=== PATIENT | female | born 1975 | race Caucasian/White ===

== ENCOUNTER 2019-03-21 08:49 | Outpatient (CLI) | payer BC, SELFPAY ==
[2019-03-21 09:31] LABS: Albumin Level 4.7 g/dL (3.5-5.2); Anion Gap 15.9 (5-19); Blood Urea Nitrogen 37 mg/dL (6-20); Calcium 11.2 mg/Dl (8.6-10.0); Carbon Dioxide 25 mmol/L (22-29); Chloride 101 mmol/L (98-107); Glucose 100 mg/dL (74-109); Phosphorus 3.3 mg/dL (2.5-4.5); Potassium 3.9 mmol/L (3.5-5.1); Sodium 138 mmol/L (136-145)
== END 2019-03-21 08:50 | disposition home or self-care (01) ==
LOC: LAB 08:56
PROVIDERS: Family Provider Family Medicine; PCP Family Medicine; Visit Provider Internal Medicine Nephrology
DX: N18.9 Chronic kidney disease, unspecified (principal)
CPT/HCPCS: 80069

== ENCOUNTER 2019-03-25 08:57 | Outpatient (CLI) | payer BC, SELFPAY | END 2019-03-25 08:58 | disposition home or self-care (01) | LOC: ONCMED 08:58 | PROVIDERS: Family Provider Family Medicine; PCP Family Medicine; Visit Provider Internal Medicine Hematology & Oncology | DX: Z45.2 Encounter for adjustment and management of vascular access device (principal) | CPT/HCPCS: 96523 ==

== ENCOUNTER 2019-04-10 10:00 | Outpatient (CLI) | payer BC, SELFPAY ==
--- NOTE | 2019-04-10 10:12 | CT_ITS ---
WS: [id number] CT ABDOMEN AND PELVIS NONCONTRAST HISTORY: ABDOMINAL PAIN, CHRONIC KIDNEY DISEASE STAGE 4 TECHNIQUE: Imaging performed through the abdomen and pelvis. Coronal and sagittal reformats are submi tted. All CT scans at [facility] use at least one of these dose optimization techniques: automated exposure control; mA and/or kV adjustment per patient size (includes targeted exams where d ose is matched to clinical indication); or iterative reconstruction. DLP: 1038.22 mGycm COMPARISON: 12/18/2017 Lower thorax: Minimal linear subsegmental atelectasis at the lung bases. No pleural effusion or pneum othorax. Heart size is normal. No hiatal hernia. Small shoddy retrocrural lymph nodes. Liver: New hypoechoic dense lesion along the falciform ligament measures 2.2 x 2.0 cm. New since the prior study where a typical location for focal steatosis. Cannot evaluate further without IV contrast . Gallbladder: Unremarkable. Pancreas: Normal. Spleen: Normal. Adrenal glands: Normal. Right kidney: Progressive atrophy of the RIGHT kidney. RIGHT kidney measures 7.7 cm in length as comp ared to 9.0 cm on 12/18/2017. Diffuse cortical thinning with perinephric stranding. Left kidney: LEFT kidney is normal size at 10.5 cm. There are numerous calcifications throughout the kidney. The largest is in the lower pole which is nonobstructing and measures 1.6 cm. Mild distention of the renal pelvis and calyces and proximal ureter. Much improved since 08/22/2017 but similar to . Scattered calcification within the abdominal aorta with no aneurysm. Persistent shotty retroperitoneal lymphadenopathy. Adenopathy at the level of the aortic bifurcation appears slightly improved. Confluent adenopathy extending medial to the iliopsoas muscles into the pe lvis and along the iliac chains and obturator regions appears to progressed. Confluent soft tissue me dial to the LEFT psoas measures 2.7 cm in diameter as compared to 1.3 cm on the prior study. Lymph no clarisa are difficult to visualize discretely as they are very ill-defined in appearance and confluent. L argest lymph node measures 2.5 cm in the LEFT pelvis. There was only a very small lymph node at this location on the prior study. Bilaterally there is increasing soft tissue and adenopathy. Bilateral ur eteral stents have been removed since 12/18/2017. GI tract: Moderate diffuse fecal retention. Normal appendix. No obstruction. Abdominal wall: Intact. Pelvis: Well-distended urinary bladder. Uterus is midline and an endometrial is dilated and thickened measuring up to 2.1 cm. There is a small cystic area associated with the RIGHT ovary measuring 1.5 c m. Osseous structures: Partial sclerotic changes in the L4 vertebral body with no progression. CT/CT abdomen pelvis wo con [id number] IMPRESSION: 1. Progressive atrophy of the RIGHT kidney since 12/18/2017. 2. Bilateral ureteral stents have been removed since 12/18/2017. 3. LEFT renal calcifications and mild dilatation of the renal pelvis and proxi mal ureter, similar to the prior study. 4. Suspicious for recurrence and progression of patient's lymphoma since the p rior study. New and increasing size and number of lymph nodes in the retroperit oneum, iliac and pelvic lymph node groups. 5. Fluid-filled endometrium. 6. Hypodense area along the falciform ligament is a typical area for hepatic s teatosis. Recommend follow-up ultrasound for further evaluation to exclude neop lasm.
== END 2019-04-10 10:01 | disposition home or self-care (01) ==
LOC: RADWPI 10:03
PROVIDERS: Family Provider Family Medicine; PCP Family Medicine; Visit Provider Internal Medicine Nephrology
DX: N18.4 Chronic kidney disease, stage 4 (severe) (principal); R10.9 Unspecified abdominal pain; N26.1 Atrophy of kidney (terminal); Z96.0 Presence of urogenital implants; N28.89 Other specified disorders of kidney and ureter
CPT/HCPCS: 74176

== ENCOUNTER 2019-04-16 11:21 | Outpatient (CLI) | payer BC, SELFPAY ==
[2019-04-16 11:43] LABS: Basophils % 0.4 %; Eosinophils # 0.2 10^3/uL (0.0-0.8); Hematocrit 40.9 % (37.0-47.0); Hemoglobin 13.2 g/dL (11.5-15.3); Lymphocytes # 0.9 10^3/uL (0.8-4.8); Lymphocytes % 8.3 %; Mean Corpuscular HGB Conc 32.3 g/dL (30.0-36.0); Mean Corpuscular Hemoglobin 32.6 pg (28.0-34.0); Mean Platelet Volume 9.7 fL (7.4-10.4); Monocytes % 9.1 %; Neutrophils # 8.9 10^3/uL (1.8-7.7); Neutrophils % 79.8 %; Nucleated Red Blood Cells % 0 %; Platelet Count 319 10^3/cmm (130-400); Red Blood Count 4.05 10^6/uL (4.1-5.3); Red Cell Distribution Width 12.6 % (12.1-15.1); White Blood Count 11.1 10^3/uL (4.0-10.0)
[2019-04-16 11:52] LABS: Albumin Level 4.2 g/dL (3.5-5.2); Anion Gap 17.2 (5-19); Blood Urea Nitrogen 33 mg/dL (6-20); Calcium 11.1 mg/dL (8.5-10.5); Carbon Dioxide 24 mmol/L (22-29); Chloride 102 mmol/L (98-107); Glucose 96 mg/dL (65-115); Phosphorus 3.5 mg/dL (2.5-4.5); Potassium 4.2 mmol/L (3.5-5.1); Sodium 139 mmol/L (136-145)
== END 2019-04-16 11:22 | disposition home or self-care (01) ==
LOC: LAB 11:24
PROVIDERS: Family Provider Family Medicine; PCP Family Medicine; Visit Provider Internal Medicine Nephrology
DX: N18.4 Chronic kidney disease, stage 4 (severe) (principal)
CPT/HCPCS: 36415; 80069; 85025

== ENCOUNTER 2019-04-23 16:10 | Outpatient (CLI) | payer BC, SELFPAY ==
--- NOTE | 2019-04-23 16:16 | XRR_ITS ---
PROCEDURE INFORMATION: Exam: XR Right Hip with Pelvis when Performed Exam date and time: 04/23/2019 4:23 PM Age: 44 years old Clinical indication: Hip pain; Right hip; Additional info: Right hip pain/hx of lymphoma TECHNIQUE: Imaging protocol: XR Right hip with pelvis when performed. Views: 1 view. COMPARISON: CR Pelvis AP 1 or 2 views* [id number] 01/13/2019 2:37 PM FINDINGS: Bones/joints: Right hip appears well conjugated. No fracture or dislocation evident. Soft tissues: Unremarkable. XR/XR hip RT 2-3V wo/w pel* [id number] IMPRESSION: No acute findings.
== END 2019-04-23 16:11 | disposition home or self-care (01) ==
LOC: RAD 16:12
PROVIDERS: Family Provider Family Medicine; PCP Family Medicine; Visit Provider Psychiatry & Neurology Neurology
DX: M25.551 Pain in right hip (principal); Z85.72 Personal history of non-Hodgkin lymphomas
CPT/HCPCS: 73502

== ENCOUNTER 2019-04-28 09:05 | Outpatient (CLI) | payer BC, SELFPAY | END 2019-04-28 09:06 | disposition home or self-care (01) | LOC: ONCMED 09:05 | PROVIDERS: Family Provider Family Medicine; PCP Family Medicine; Visit Provider Internal Medicine Hematology & Oncology | DX: Z76.89 Persons encountering health services in other specified circumstances (principal) ==

== ENCOUNTER 2019-04-28 09:20 | Emergency (ER) | payer BC, SELFPAY ==
[2019-04-28 09:22] VITALS: BP 150/83; PULSE 92; RESP 18; O2SAT 99; BMI 22.3
--- NOTE | 2019-04-28 09:23 | ED_ITS ---
HPI - Back Pain/Injury General: Chief Complaint: Back Pain/Injury Stated Complaint: BACK PAIN Time Seen by Provider: 04/28/19 09:23 Source: patient Mode of arrival: ambulatory Limitations: no limitations History of Present Illness: HPI Narrative: Patient is a very nice 44-year-old female who presents to ED today at the request of her oncologist Dr. Owusu for complaints of continued lower back pain over the past 9 weeks. Patient states she has been seen by her oncologist Dr. Owusu and her food safety director Dr. Miles both of which are not sure what could be causing her symptoms. Patient states pain seems to be radiating around into her abdomen. She reports about 3 wks ago she had vaginal bleeding which was abnormal as she experience menopause with the chemo/radiation and has not had vaginal bleeding in years. She was scheduled for outpt pelvic US in a few days but after seeing Dr. Owusu today, he wanted her to come to ED for more prompt evaluation. She does not have any changes in urinary or bowel habits. No nausea or vomiting. No fevers or chills. Patient reports a history of lymphoma currently being treated with maintenance therapy. She reports a right atrophic kidney. She reports at one point was on peritoneal dialysis but her food safety director recently ordered her peritoneal tube to be removed as her GFR was stable. Tube was removed by Dr. Abreu last month. elicited complaint: back pain Onset (ago): week(s) Timing: constant Severity: moderate Location: lumbar spine, right lower back and left lower back Associated symptoms: Reports abdominal pain; Deny chills, dysuria, fatigue, fever(s), nausea, syncope, urinary urgency or vomiting Review of Systems Const: Denies: fever, chills, body aches, fatigue or malaise Card: Denies: chest pain, palpitations, irregular heart rhythm, edema, swelling of feet/ankles, lightheadedness, syncope or pre-syncope Resp: Denies: shortness of breath, productive cough or chest congestion GI: Reports: abdominal pain; Denies: nausea, vomiting, diarrhea or constipation : Denies: flank pain, difficulty urinating, painful urination, urinary frequency, urinary urgency or urinary hesitancy Musc: Reports: back pain; Denies: neck pain, extremity pain, extremity swelling, joint pain, joint swelling or limited range of motion Skin/Breast: Denies: rash Neuro: Denies: headache, numbness in extremities, weakness in extremities or changes in sensation PFSH ED PFSH: Medical History (Updated 04/28/19 @ 13:39 by DESIREE Grayson) Chronic renal failure, stage 4 (severe) Kidney stones Lymphoma Peritoneal dialysis catheter in place Removed. Port-A-Cath in place Surgical History (Updated 03/25/19 @ 15:52 by Vinh Abreu MD) History of S/P cystoscopy with ureteral stent placement bilateral - [place] Family History (Updated 03/19/19 @ 12:17 by Mona Tao, RN) Denies family history of Anesthesia complication Bleeding disorder Social History (Updated 03/19/19 @ 12:18 by Mona Tao RN) Smoking and tobacco status: current every day smoker Second hand smoke exposure: No Alcohol intake: never Adopted: No Caregiver/support person: Yes Lives independently: Yes Household members: spouse Housing: House Current gender identity: Female Physical Exam Const: COMMON NORMALS: no apparent distress, average body habitus, oriented x3, no limitations, healthy appearing, alert and well nourished Resp: COMMON NORMALS: normal respiratory effort and clear to auscultation bilaterally AUSCULTATION: clear to auscultation bilaterally Cardio: COMMON NORMALS: regular rate and regular rhythm RATE: regular rate RHYTHM: regular rhythm GI: COMMON NORMALS: normal to inspection, nondistended, normoactive bowel sounds, soft to palpation, no hepatosplenomegaly and no masses PALPATION: Yes soft and Yes no hepatosplenomegaly OTHER: mid tenderness throughout lower abdomen-R>L : COMMON NORMALS: Yes no CVA tenderness BLADDER/KIDNEY EXAM: Yes no CVA tenderness Back/Pelvis: COMMON NORMALS: no CVA tenderness OTHER: pain across lower back; negative straight leg raise bilaterally; ROM of legs does not seem to reproduce back pain Extremity: COMMON NORMALS: normal to inspection Neuro: COMMON NORMALS: oriented x3, no focal motor deficits and no sensory deficits noted SENSORIUM/ORIENTATION: Yes alert Skin: COMMON NORMALS: no rashes or lesions noted GENERAL SKIN EXAM: no rashes or lesions noted Course Vital Signs: Vital signs: Vital Signs Pulse Rate 74 04/28/19 13:55 Respiratory Rate 14 04/28/19 13:55 Blood Pressure 125/87 04/28/19 13:55 Pulse Oximetry 97 04/28/19 13:55 MDM - Back Pain/Injury MDM Narrative: Medical decision making narrative: On patient's pelvic ultrasound she does have a large endometrial mass with a differential diagnosis including neoplasm. She will need to follow-up with women's health for this. She currently has an appointment with them scheduled for May 11 (this was going to be her follow-up appointment should she had had her pelvic ultrasound outpatient). We will contact case management to see if they can get her a sooner appointment. 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 She has a little left-sided hydronephrosis likely due to compression of her distal ureter from the soft tissue. I contacted [facility] radiologist Dr. Tatum who compared directly to her last CT scan on 04/10 and stated the findings were stable/unchanged. Due to a nonfunctioning atrophic right kidney, previous dialysis, a GFR of 17, and probable UTI on her UA I contacted Dr. Rose to see if a ureter stent would be indicated. He reviewed patient's imaging and does not feel the findings today are related to her discomfort. He did not feel a ureter stent would be indicated at this time. Did recommend going ahead and treating her for the UTI. I contacted Dr. Owusu to let him know findings and that we would be setting her up with [facility] for evaluation of her endometrial mass. Recommend she follow-up with her food safety director Dr. Miles as well. Her GFR and BUN/Cr are at her baseline (actually better) today. Lab Data: Labs: Lab Results 04/28/19 04/28/19 04/28/19 Range/Units 09:29 09:50 09:50 WBC 13.7 H (4.0-10.0) 10^3/ uL RBC 3.94 L (4.1-5.3) 10^6/u L Hgb 12.9 (11.5-15.3) g/dL Hct 39.1 (37.0-47.0) % MCV 99.2 H (81-99) fL MCH 32.7 (28.0-34.0) pg MCHC 33.0 (30.0-36.0) g/dL RDW 13.0 (12.1-15.1) % Plt Count 290 (130-400) 10^3/c mm MPV 9.8 (7.4-10.4) fL Neut % (Auto) 82.9 % Lymph % (Auto) 5.9 % Linn % (Auto) 8.7 % Eos % (Auto) 1.6 % Baso % (Auto) 0.1 % Neut # (Auto) 11.3 H (1.8-7.7) 10^3/u L Lymph # (Auto) 0.8 (0.8-4.8) 10^3/u L Linn # (Auto) 1.2 H (0.2-0.9) 10^3/u L Eos # (Auto) 0.2 (0.0-0.8) 10^3/u L Baso # (Auto) 0.0 (0.0-0.1) 10^3/u L Nucleated RBC % (a uto) 0 % Nucleated RBCs # 0.0 /100WBC Sodium 138 (136-145) mmol/L Potassium 4.2 (3.5-5.1) mmol/L Chloride 101 (98-107) mmol/L Carbon Dioxide 23 (22-29) mmol/L Anion Gap 18.2 (5-19) BUN 45 H (6-20) mg/dL Creatinine 2.9 H (0.5-0.9) mg/dL GFR Calculation 17.5 L (90-130) mL/min Glucose 100 (65-115) mg/dL Calcium 10.7 H (8.5-10.5) mg/dL Total Bilirubin 0.4 (0.15-1.2) mg/dL AST 19 (0-32) U/L ALT 15 (0-33) U/L Alkaline Phosphata se 91 (35-105) IU/L Total Protein 7.4 (6.6-8.7) g/dL Albumin 4.1 (3.5-5.2) g/dL Globulin 3.3 (1.3-4.6) g/dL Urine Color Straw (Yellow) Urine Appearance Sl hazy (CLEAR) Urine pH 7.0 (5-7) Ur Specific Gravit y 1.010 (1.005-1.030) Urine Protein Neg (Negative) Urine Glucose (UA) Norm (Normal) Urine Ketones Negative (Negative) Urine Occult Blood 2+ H (Negative) Urine Nitrate Negative (Negative) Urine Bilirubin Neg (NEGATIVE) Urine Urobilinogen Norm (Negative) mg/dL Ur Leukocyte Lauren ase 2+ H (Negative) Urine RBC 0-4 H (0-2) /hpf Urine WBC 15-25 H (0-5) /hpf Ur Squamous Epith Cells 0-4 H (0-5) Urine Bacteria 1+ H (NONE) Imaging Data^: CT lumbar : Radiologist's impression: [address] [address] [address] Scan Report Signed Patient: Shruthi Hess Unit #: [id number] : 1975 Age/Sex: 44 / F ADM Date: 04/28/19 Loc: ER Room/Bed: Attending Dr: Ordering Provider/Ordering MD: Tosha Lamas Date of Service: 04/28/19 Procedure(s): CT lumbar spine wo con* [id number] Accession Number(s): [id number] Report Number: [id number] PROCEDURE INFORMATION: Exam: CT Lumbar Spine Without Contrast Exam date and time: 04/28/2019 11:23 AM Age: 44 years old Clinical indication: Low back pain; Prior surgery; Surgery type: Peritoneal port; Patient HX: RT sided back pain with history of lymphoma; Additional info: Back pain; HX of lymphoma TECHNIQUE: Imaging protocol: Computed tomography images of the lumbar spine without contrast. Total DLP: 1428.83 mGy-cm Radiation optimization: All CT scans at this facility use at least one of these dose optimization techniques: automated exposure control; mA and/or kV adjustment per patient size (includes targeted exams where dose is matched to clinical indication); or iterative reconstruction. COMPARISON: CT abdomen pelvis wo con [id number] 04/10/2019 11:00:[address] Abdomen/Pelvis Renal [id number] 12/18/2017 8:20:29 PM FINDINGS: Vertebrae: A sclerotic lesion within the right lateral aspect of the L4 vertebral body is unchanged. No acute fracture is present. Alignment is anatomic. Discs/Spinal canal/Neural foramina: Mild degenerative changes of the lumbar spine are present. There is no severe spinal canal stenosis or severe neural foraminal narrowing. Vasculature: Atherosclerotic calcifications are noted within the aorta and its branches. Lymph nodes: Extensive retroperitoneal, mesenteric, and aortocaval lymphadenopathy is present, compatible with the history of lymphoma. 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 Soft tissues: See Lymph Nodes Finding. Kidneys and ureters: The right kidney is atrophic. Mild left-sided hydronephrosis is present, likely due to compression of the distal ureter by the above-mentioned retroperitoneal soft tissue. Multiple nonobstructing stones and milk of calcium are noted within the left kidney. CT/CT lumbar spine wo con* [id number] IMPRESSION: 1. Extensive retroperitoneal, mesenteric, and aortocaval lymphadenopathy is present, compatible with the history of lymphoma. 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 2. Stable sclerotic lesion in the L4 vertebra Radiation Dose CTDIVOL = (mGy): DLP = 1428.83 (mGy-cm) Dictated By: Gurwinder Tatum MD Signed By: Gurwinder Tatum MD Signed Date/Time: 04/28/19 1248 DD/ 1246 US pelvis: Radiologist's impression: [place] [address] Ultrasound Report Signed Patient: Shruthi Hess Unit #: [id number] : 1975 Age/Sex: 44 / F ADM Date: 04/28/19 Loc: ER Room/Bed: Attending Dr: Ordering Provider/Ordering MD: Tosha Lamas Date of Service: 04/28/19 Procedure(s): US pelvic with transvaginal Accession Number(s): [id number] Report Number: [id number] WS: [id number] PELVIC ULTRASOUND REASON FOR VISIT: pelvic pain/bleeding TECHNIQUE: Grayscale and Doppler transabdominal and transvaginal pelvic ultrasound. FINDINGS: A benign appearing cyst of the right ovary is seen measured 2.27 x 1.58 x 1.80 cm. Uterus measures 9.0 cm x 4.0 cm x 3.2 cm, right ovary measures 2.8 cm x 2.5 cm x 2.7 cm, and left ovary measures not visualized. Along the endometrial surface is a mass configuration in a complex uterus this measures 3.08 x 1.76 x 3.216 cm. The cervix appeared to be clear the lesion. Lesion appears to extend to the fundus of the uterus. The differential diagnosis includes neoplasm or marked endometrial hyperplasia. US/US pelvic with transvaginal IMPRESSION: A large endometrial mass is seen involving the upper one half of the uterus extends to the fundus. A benign cyst of the right ovary The left ovary is not visualized. Dictated By: Addy Gutierres DO Signed By: Addy Gutierres DO Signed Date/Time: 04/28/19 1105 DD/ 1053 Discharge Plan Discharge Patient Disposition: Home, Self-Care Clinical Impression: Retroperitoneal fibrosis, Endometrial mass, Chronic renal failure, stage 4 (severe) Condition: Stable Prescriptions: New hydrocodone-acetaminophen 5-325 mg tablet 1 tab PO Q6H PRN (Reason: pain) Qty: 14 RF: 0 ciprofloxacin HCl 250 mg tablet 250 mg PO DAILY Qty: 7 RF: 0 No Action RenaPlex 800 mcg- 12.5 mg tablet 1 tab PO DAILY RF: 0 hydrocodone-acetaminophen 5-325 mg tablet 1 tab PO Q6H PRN (Reason: Pain) RF: 0 diclofenac sodium 1 % gel See Rx Instructions .ROUTE .COMPLEX RF: 0 Discharge Orders: Discharge Order (Routine); Ordered 04/28/19 Ordered By: Tosha Lamas Referrals: Mack Yarbrough MD [Primary Care Provider] - Activity Restrictions/Additional Instructions: As discussed case management should contact you with hopefully a sooner appointment for your women's health follow-up. If not please keep your appointment on May 11. Follow-up with Dr. Owusu as scheduled. Please contact Dr. Miles so he is aware of findings today. Discharge Date/Time: 04/28/19 13:55 Coding Level of Care Code ED [employer] for Andrea Lord
--- NOTE | 2019-04-28 09:44 | US_ITS ---
WS: [id number] PELVIC ULTRASOUND REASON FOR VISIT: pelvic pain/bleeding TECHNIQUE: Grayscale and Doppler transabdominal and transvaginal pelvic ultrasound. FINDINGS: A benign appearing cyst of the right ovary is seen measured 2.27 x 1.58 x 1.80 cm. Uterus measures 9.0 cm x 4.0 cm x 3.2 cm, right ovary measures 2.8 cm x 2.5 cm x 2.7 cm, and left ova ry measures not visualized. Along the endometrial surface is a mass configuration in a complex uterus this measures 3.08 x 1.76 x 3.216 cm. The cervix appeared to be clear the lesion. Lesion appears to extend to the fundus of the uterus. The differential diagnosis includes neoplasm or marked endometrial hyperplasia. US/US pelvic with transvaginal IMPRESSION: A large endometrial mass is seen involving the upper one half of the uterus ext ends to the fundus. A benign cyst of the right ovary The left ovary is not visualized.
[2019-04-28 09:57] LABS: Basophils % 0.1 %; Eosinophils # 0.2 10^3/uL (0.0-0.8); Eosinophils % 1.6 %; Hematocrit 39.1 % (37.0-47.0); Hemoglobin 12.9 g/dL (11.5-15.3); Lymphocytes # 0.8 10^3/uL (0.8-4.8); Lymphocytes % 5.9 %; Mean Corpuscular Hemoglobin 32.7 pg (28.0-34.0); Mean Corpuscular Volume 99.2 fL (81-99); Mean Platelet Volume 9.8 fL (7.4-10.4); Monocytes # 1.2 10^3/uL (0.2-0.9); Monocytes % 8.7 %; Neutrophils # 11.3 10^3/uL (1.8-7.7); Neutrophils % 82.9 %; Nucleated Red Blood Cells % 0 %; Platelet Count 290 10^3/cmm (130-400); Red Blood Count 3.94 10^6/uL (4.1-5.3); White Blood Count 13.7 10^3/uL (4.0-10.0)
[2019-04-28 10:11] LABS: Alanine Aminotransferase 15 U/L (0-33); Albumin Level 4.1 g/dL (3.5-5.2); Alkaline Phosphatase 91 IU/L (35-105); Anion Gap 18.2 (5-19); Aspartate Amino Transferase 19 U/L (0-32); Blood Urea Nitrogen 45 mg/dL (6-20); Calcium 10.7 mg/dL (8.5-10.5); Carbon Dioxide 23 mmol/L (22-29); Chloride 101 mmol/L (98-107); Globulin 3.3 g/dL (1.3-4.6); Glomerular Filtration Rate 17.5 mL/min (90-130); Glucose 100 mg/dL (65-115); Potassium 4.2 mmol/L (3.5-5.1); Sodium 138 mmol/L (136-145); Total Bilirubin 0.4 mg/dL (0.15-1.2); Total Protein 7.4 g/dL (6.6-8.7)
[2019-04-28 10:16] LABS: Urine Appearance SL Hazy (CLEAR); Urine Color Straw (Yellow)
[2019-04-28 10:17] LABS: Add Urine Microscopic? YES; Bilirubin Urine Neg (NEGATIVE); Blood Urine 2+ (Negative); Glucose Urine UA Norm (Normal); Ketones Urine Negative (Negative); Leukocyte Esterase Urine 2+ (Negative); Nitrate Urine Negative (Negative); Protein Urine Neg (Negative); Urobilinogen Urine Norm (Negative)
[2019-04-28 10:18] LABS: Add Urine Culture? Yes; Bacteria Urine 1+; RBC Urine 0-4 /hpf (0-2); Squamous Epithelial Cell Urine 0-4 (0-5); WBC Urine 15-25 /hpf (0-5)
--- NOTE | 2019-04-28 10:59 | CTR_ITS ---
PROCEDURE INFORMATION: Exam: CT Lumbar Spine Without Contrast Exam date and time: 04/28/2019 11:23 AM Age: 44 years old Clinical indication: Low back pain; Prior surgery; Surgery type: Peritoneal port; Patient HX: RT sided back pain with history of lymphoma; Additional info: Back pain; HX of lymphoma TECHNIQUE: Imaging protocol: Computed tomography images of the lumbar spine without contrast. Total DLP: 1428.83 mGy-cm Radiation optimization: All CT scans at this facility use at least one of these dose optimization techniques: automated exposure control; mA and/or kV adjustment per patient size (includes targeted exams where dose is matched to clinical indication); or iterative reconstruction. COMPARISON: CT abdomen pelvis wo con [id number] 04/10/2019 11:00:[address] Abdomen/Pelvis Renal [id number] 12/18/2017 8:20:29 PM FINDINGS: Vertebrae: A sclerotic lesion within the right lateral aspect of the L4 vertebral body is unchanged. No acute fracture is present. Alignment is anatomic. Discs/Spinal canal/Neural foramina: Mild degenerative changes of the lumbar spine are present. There is no severe spinal canal stenosis or severe neural foraminal narrowing. Vasculature: Atherosclerotic calcifications are noted within the aorta and its branches. Lymph nodes: Extensive retroperitoneal, mesenteric, and aortocaval lymphadenopathy is present, compatible with the history of lymphoma. 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 Soft tissues: See Lymph Nodes Finding. Kidneys and ureters: The right kidney is atrophic. Mild left-sided hydronephrosis is present, likely due to compression of the distal ureter by the above-mentioned retroperitoneal soft tissue. Multiple nonobstructing stones and milk of calcium are noted within the left kidney. CT/CT lumbar spine wo con* [id number] IMPRESSION: 1. Extensive retroperitoneal, mesenteric, and aortocaval lymphadenopathy is present, compatible with the history of lymphoma. 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 2. Stable sclerotic lesion in the L4 vertebra Radiation Dose CTDIVOL = (mGy): DLP = 1428.83 (mGy-cm)
[2019-04-28 11:23] VITALS: RESP 12
[2019-04-28] MEDS: morphine 4 mg/mL SDV 1 mL IM (11:23)
[2019-04-28 11:25] VITALS: BP 126/74; PULSE 87; RESP 16; O2SAT 98
[2019-04-28 12:46] VITALS: BP 114/76; PULSE 83; RESP 17; O2SAT 96
--- NOTE | 2019-04-28 12:48 | PC.NURSE ---
Patient resting without complaint. Given PO fluids and crackers. Denies any needs at this time.
[2019-04-28 13:55] VITALS: BP 125/87; PULSE 74; RESP 14; O2SAT 97
--- NOTE | 2019-04-29 15:17 | DCPLANNER ---
platform material handler manager had message to schedule a follow up appointment for patient with [facility]. platform material handler manager called [facility], gave clinic patients information. platform material handler manager was told that patients information would be printed and reviewed. Clinic will call caseworker and patient with appointment information.
--- NOTE | 2019-04-30 13:13 | DCPLANNER ---
Awilda from [facility] called, a follow up appointment has been scheduled for Sunday, May 05, 2019 at 3:[address] Freeman. Clinic called patient with appointment information.
--- NOTE | 2019-05-13 14:49 | DCPLANNER ---
Patient did attend appointment scheduled for 05.05.19 with [facility].
== END 2019-04-28 13:55 | disposition home or self-care (01) ==
PROVIDERS: Emergency Provider Physician Assistant; Family Provider Family Medicine; PCP Family Medicine
DX: N13.5 Crossing vessel and stricture of ureter without hydronephrosis (principal); N85.9 Noninflammatory disorder of uterus, unspecified; N18.4 Chronic kidney disease, stage 4 (severe); C85.90 Non-Hodgkin lymphoma, unspecified, unspecified site; F17.200 Nicotine dependence, unspecified, uncomplicated
CPT/HCPCS: 36415; 72131; 76830; 76856; 80053; 81001; 85025; 87086; 96372; 99281; 99283; A9270; J2270

== ENCOUNTER → 2019-05-05 16:15 | Outpatient (BNVA) | payer BC, SELFPAY | PROVIDERS: Family Provider Family Medicine; PCP Family Medicine; Visit Provider Obstetrics & Gynecology | DX: N93.9 Abnormal uterine and vaginal bleeding, unspecified (principal) | CPT/HCPCS: 83001; 84146; 84443; 84703; 85025 ==

== ENCOUNTER 2019-05-28 06:13 | Outpatient (CLI) | payer BC, SELFPAY ==
[2019-05-28 09:26] LABS: Basophils % 0.2 %; Eosinophils # 0.1 10^3/uL (0.0-0.8); Eosinophils % 0.9 %; Hematocrit 36.4 % (37.0-47.0); Lymphocytes # 0.9 10^3/uL (0.8-4.8); Lymphocytes % 5.8 %; Mean Corpuscular Hemoglobin 33.9 pg (28.0-34.0); Mean Corpuscular Volume 102.8 fL (81-99); Mean Platelet Volume 9.7 fL (7.4-10.4); Monocytes # 1.3 10^3/uL (0.2-0.9); Monocytes % 8.1 %; Neutrophils # 13.1 10^3/uL (1.8-7.7); Neutrophils % 84.2 %; Nucleated Red Blood Cells % 0 %; Platelet Count 329 10^3/cmm (130-400); Red Blood Count 3.54 10^6/uL (4.1-5.3); Red Cell Distribution Width 13.3 % (12.1-15.1); White Blood Count 15.6 10^3/uL (4.0-10.0)
[2019-05-28 09:38] LABS: Alanine Aminotransferase 6 U/L (0-33); Albumin Level 3.9 g/dL (3.5-5.2); Alkaline Phosphatase 90 IU/L (35-105); Anion Gap 13.5 (5-19); Aspartate Amino Transferase 16 U/L (0-32); Blood Urea Nitrogen 30 mg/dL (6-20); Calcium 11.6 mg/dL (8.5-10.5); Carbon Dioxide 26 mmol/L (22-29); Chloride 102 mmol/L (98-107); Globulin 3.4 g/dL (1.3-4.6); Glomerular Filtration Rate 18.2 mL/min (90-130); Glucose 105 mg/dL (65-115); Osmolality Calculated 283 mOsm/kg (285-295); Potassium 3.5 mmol/L (3.5-5.1); Sodium 138 mmol/L (136-145); Total Bilirubin 0.2 mg/dL (0.15-1.2); Total Protein 7.3 g/dL (6.6-8.7)
--- NOTE | 2019-05-28 14:31 | ONC FU_ITS ---
Dr. Owusu follow up note Patient: Shruthi Hess Unit #: [id number]: 1975 Dicatated By: Nicole Owusu M.D.Date of Visit:May 28, 2019 Onc Med Follow-up/Prog Note History of Present Illness: Mrs. Shruthi Hess, is a 43-year-old female who initially, in 2011, was diagnosed with non-Hodgkin lymphoma diffuse large B cell with extensive disease above and below diaphragm at that time bone marrow evaluation was negative and PET scan showed the dominant mesenteric mass with retroperitoneal lymphadenopathy and disease was also present above the diaphragm. She was treated with 6 cycles of chemotherapy with R CHOP and lost treatment was given in July 2011 and follow-up CT PET scan showed complete remission. Subsequently patient lost follow-up until in August 2017 she was admitted to hospital with generalized weakness and fatigue, abdominal discomfort and pain and renal insufficiency, CT scan of abdomen showed progressive retroperitoneal adenopathy causing post renal obstruction and bilateral ureteral stents were placed in and biopsy of retroperitoneal lymph nodes was obtained and this time it showed follicular lymphoma, grade 3A (60%), and grade 1-2 (40%), no diffuse large B cell lymphoma identified patient was started on R CHOP again but Doxil was used instead of doxorubicin with second cycle every and vincristine dose was reduced by 50% in the last 3 cycles due to peripheral neuropathy. CT PET scan done after 5 cycles of chemotherapy showed confluent lower retroperitoneal/pelvic adenopathy, right more prominent than left, similar to that observed on the previous CT scan exam. Consistent with lymphoma involvement but with low level of metabolic standards meeting Deauville 2 criteria consistent with tumor response history. Her hematuria resolved, but intended to have pelvic pain for which she take 5/325 hydrocodone/acetaminophen. And other issue she had persistent hypercalcemia and impression was probably due to renal insufficiency for which she is on daily peritoneal dialysis at home. And patient is noncompliant with that . After 6 cycles of modified R CHOP ( Doxil instead of Adriamycin and 50% dose reduction and vincristine with the last 3 cycles )chemotherapy she was offered maintenance therapy with Rituxan every 3 months ???24 months. But patient decided to switch her care close to her home Had follow-up CT PET scan done on 06/19/2018 at [facility], as per report it shows no evidence of disease. She was evaluated by Dr. Almanza and she recommended maintenance therapy with Rituxan every 3 months for 2 years.Started maintenance therapy with Rituxan every 3 months on 05/28/2018 CT scan of abdomen pelvis done on 04/10/2019 showed suspicious for recurrence and progression of patient's lymphoma. Anterior size and number of lymph nodes in the retroperitoneum, iliac and pelvic lymph nodes group. Fluid-filled endometrium. Follow-up CT PET scan done on 05/02/2019 showed extensive lower retroperitoneal and pelvic lymphadenopathy with marked metabolic activity. Uterus demonstrated marked increase of metabolic activity concerning for neoplastic A cystic masses present cephalad to the urinary bladder and center to the uterus of unknown etiology without focally increase metabolic activity. Consider possible peritoneal inclusion cyst Patient went to see Dr. Mosqueda at [facility], where on 05/22/[address]-guided core biopsy of right pelvic lymph node and final pathology report confirmed metastatic squamous cell carcinoma, moderately to poorly differentiated. Too few cells for flow cytometry Came for follow-up, complaining of lower pelvic pain now being controlled with narcotics. Denies any vaginal bleed denies any hematuria denies any melena or hematochezia denies any jaundice. And concern but recurrence of disease and here to discuss about pelvic lymph node biopsy report Medications: HYDROcodone-Acetaminophen 1 Tablet (of 5-325 mg) Oral q 4 hours, RenaPlex-D 1 Tablet Oral daily Allergies: No Known Allergies. Review of Systems: Constitutional - Appetite is fair. Weight is stable. No fever, chills, or night sweats. Energy level is poor. Occasional hot flashes, ENMT - No sinus congestion/drainage. No mouth sores. No sore throat or difficulty swallowing, Hematologic/Lymphatic - No abnormal bruising or bleeding, Respiratory - No shortness of breath. No cough. No pleuritic pain or hemoptysis, Cardiovascular - No angina pain. No palpitations, Gastrointestinal - No nausea or vomiting. No heartburn or acid reflux. No diarrhea or constipation. No blood in the stool or black stools. Positive for severe lower abdominal pain, Genitourinary (F) - No dysuria or hematuria. No urinary frequency. No urgency or incontinence, Musculoskeletal - Occasional joint pain, Neurologic - No headache or dizziness. No numbness/paresthesias or other focal neurologic symptoms, Psychiatric - No depression or insomnia. Vital Signs: Performed on May 28, 2019 10:21 Height - 64.00 in Weight - 127.2 lbs (LOW) BSA - 1.61 sq.m BMI - 21.83 Temperature - 97.4 F (LOW) Pulse - 79 /min Respiration - 18 /min BP - 116/80 mm(hg) O2 Sat - 100 % Pain - 4 Performance Status: 1 - No physically strenuous activity, but ambulatory and able to carry out light or sedentary work (e.g. office work, light house work). (ECOG) Physical Examination: ENMT - No oral exudates, ulcers, masses, thrush or mucositis. Oropharynx clear. Tongue normal, Respiratory - Lungs are clear to auscultation without rhonchi or wheezing, Cardiovascular - Regular rate and rhythm of heart, Abdomen - Non-tender, non-distended, no masses, . Good bowel sounds. No guarding or rebound tenderness. No pulsatile masses, Extremities - no edema. Lab/Imaging: Test performed on Feb 26, 2019 09:00 Sodium 140 mmol/L Potassium 4.0 mmol/L Chloride 105 mmol/L CO2 23 mmol/L Anion Gap 16.0 BUN 46 mg/dL Creatinine 3.1 mg/dL Cr Clearance (Est) 22.4700 mL/min eGFR 16.2 mL/min Glucose 105 mg/dl Calcium 10.2 mg/dL Protein, Total 7.1 g/dL Albumin 4.5 g/dL Globulin 2.6 gm/dL Bilirubin, Total 0.2 mg/dL ALT (SGPT) 15 U/L AST (SGOT) 20 U/L Alkaline Phosphatase 117 U/L WBC 9.3 10 3/uL RBC 3.83 10 6/uL HGB 13.0 g/dL HCT 39.2 % MCV 102.3 fl MCH 33.9 pg MCHC 33.2 g/dl RDW 12.8 % Platelet Count 197 10 3/cmm MPV 9.8 fl Neutrophils 7.0 10 3/uL Lymphocytes 0.8 10 3/uL Monocytes 1.2 10 3/uL Eosinophils 0.2 10 3/uL Basophils 0.0 10 3/uL Neutrophil % 75.6 % Lymphocyte % 8.1 % Monocyte % 13.3 % Eosinophil % 2.4 % Basophils % 0.2 % Impression: Follicular lymphoma involving both side of diaphragm clinical stage III per left retroperitoneal lymph node core biopsy done on 08/27/2017. Which showed follicular lymphoma, grade 3A (60%,) grade1-2 (40% )and now diffuse large B-cell lymphoma identified CT scan of chest abdomen pelvis done on 08/23/2017 showed extensive confluent retroperitoneal lymphadenopathy. Moderate bilateral hydronephrosis with ureteral stents and no evidence of hepatosplenomegaly. CT scan of chest done on 08/25/2017 showed no evidence of thoracic lymphadenopathy Status post 6 cycles of chemotherapy with modified R CHOP (Doxil instead of doxorubicin after first cycle and 50% vincristine dose reduction with last 3 cycles) 10/04/17 to 01/22/18 follow-up CT PET scan done on 01/10/2018 showed confluent lower retroperitoneal/pelvic lymphadenopathy, right more than left, similar to that observed on previous CT scan but now with low level of metabolic standards meeting Deauville 2 criteria consistent with tumor responseRenal failure on daily peritoneal dialysis at home, ? Noncompliant Hypercalcemia ? Etiology, renal versus metabolic/endocrine e.g. PTH related. Or malignant. Next Right Pelvic pain/right knee pain scan due to retroperitoneal lymphadenopathy or lumbosacral Anemia probably multifactorial Peripheral neuropathy Ectopic dermatitis on feet being treated with clobetasol cream Patient was referred to lymphoma leukemia clinic at [facility] in [place] for clinical trials or second opinion patient was seen by Dr. Almanza , and her recommendations were, due to patient's underlying renal failure and being on peritoneal dialysis she was not a candidate for clinical trials. But maintenance therapy with Rituxan every 3 months for 2 years was recommended and she is planning to repeat her CT PET scan in 2 months because of persistent lymphadenopathy on posttreatment CT scan. Also considering referred to [facility]poster at [facility] for evaluation regarding etiology, management and chances of recovery or if she is a candidate for renal transplant. discussed with Mrs Hess her visit to lymphoma clinic at [facility] and the recommendations. At this point, her treatment plan will be maintenance therapy with Rituxan 375 mg/m??? every 3 months ???2 years, as recommended by Dr. Almanza .Started on maintenance therapy with Rituxan every 3 months on 05/28/2018 Plan: Discussed with patient regarding herlabs which showed white blood count 15.6 and globin 12 crit 36.4 platelets 329,000 CMP within normal limit except creatinine 2.8 and calcium 11.6 and right pelvic lymph node biopsy report which showed metastatic squamous cell carcinoma moderately to poorly differentiated, which was a incidental finding as patient has history of lymphoma. And CT PET scan shows increase uptake in the uterus. Case was discussed with Dr. Almanza, and she suggested [employer] surgical oncologist evaluation, now being referred to [facility] for evaluation. If hysterectomy is under consideration then we will also request whole lymph node biopsy to confirm squamous cell carcinoma unless uterine specimen confirm squamous pathology especially cervical part. Next Patient will return to clinic 1 week after [employer] surgical evaluation done in [place] with CBC CMP and we will also give her prescription for pain medication. Signed By: Nicole Owusu M.D. <<Signature on File>>
== END 2019-05-28 06:14 | disposition home or self-care (01) ==
LOC: ONCMED 06:14
PROVIDERS: Family Provider Family Medicine; PCP Family Medicine; Visit Provider Internal Medicine Hematology & Oncology
DX: C82.33 Follicular lymphoma grade IIIa, intra-abdominal lymph nodes (principal); N13.30 Unspecified hydronephrosis; E83.52 Hypercalcemia; R10.2 Pelvic and perineal pain; D64.9 Anemia, unspecified; G62.9 Polyneuropathy, unspecified; L30.9 Dermatitis, unspecified; Z79.891 Long term (current) use of opiate analgesic; Z92.21 Personal history of antineoplastic chemotherapy; Z92.25 Personal history of immunosuppression therapy; Z96.0 Presence of urogenital implants
CPT/HCPCS: 36591; 80053; 85025; 99214

== ENCOUNTER 2019-06-05 08:59 | Outpatient (RCR) | payer BC, SELFPAY ==
--- NOTE | 2019-06-05 | CT_ITS ---
Radiation Therapy Planning CT images; total exam DLP: 498.48 mGy-cm MTDD
--- NOTE | 2019-06-05 13:58 | N.ONRAD NP_ITS ---
Radiation Oncology New Patient Visit Patient: Shruthi Hess MR#: [id number] : 1975> Age: 44> Sex: Female> Dictated by: Dr. Rishi Martinez Date of Service: 06/05/2019 Referring Physician(s) : Dr. Génesis Campbell Diagnosis: 1) C82.33 - follicular lymphoma grade iiia, intra-abdominal lymph nodes, Diagnosed 03/01/2018 (active). 2) Cervix ,Squamous Cell Carcinoma Radiotherapy to date: Summary > No prior radiation therapy. Chief Complaint / History of Present Illness: Mrs. Hess is a 44-year-old lady who has a complex history of non-Hodgkin's lymphoma. She was recently diagnosed with cervix cancer and is referred for the initiation of external beam radiation. She was found to have diffuse large B cell non-Hodgkin's lymphoma in 2011. She had disease above and below the diaphragm. She was treated with R-CHOP and went into CR. She had minimal follow-up and presented in August 2017 with weakness, fatigue, abdominal pain, and renal insufficiency. She had retroperitoneal lymphadenopathy with renal obstruction and required bilateral ureteral stents. However, she states she lost function of the right kidney. She was on peritoneal dialysis for a time but now is not on dialysis. She states she has 17% of her normal renal function. She says if she goes down to 10% she will have to go back on dialysis. A biopsy at the time of recurrence actually showed follicular lymphoma with no diffuse large B-cell lymphoma being found. She was again treated with R-CHOP, though with reduced drug doses. According to records, she had stable findings on CT and in early 2018 went on Rituxan maintenance. She is still on that, taking Rituxan every 3 months. Follow-up imaging performed in March 2019 revealed suspicious findings related to the uterus. She developed vaginal bleeding and discharge. She was found to have a node in the right lower pelvis/inguinal area. A biopsy was performed that showed metastatic squamous cell carcinoma, moderate to poorly differentiated. She saw Dr. Hicks in [place] yesterday. The exam was limited but he feels certain she has carcinoma of the cervix. He asked that the patient be seen today and simulated so that treatment can be started as soon as possible. She will have an exam under anesthesia in [place] tomorrow. I think he will be doing a biopsy at that time. Radiation oncologist is scheduled to be with him in the OR so an assessment can be made about future brachii therapy. Current Medications: Acetaminophen, dexamethasone, diphenhydrAMINE HCl, hydrocodone-Acetaminophen, hYDROcodone-Acetaminophen, renaPlex-D, riTUXimab. Allergies: No Known Allergies Medical History: - Anemia, - peripheral neuropathy, - renal failure. No history of collagen vascular disease. No previous radiation therapy. Surgical History: Caesarean section, cystoscopy, port placement and ureteral stent. Family History: Father is alive. Mother is having experienced brain aneurysm, and renal cancer. Maternal Grandmother is having experienced lymphoma. paternal aunt had uterine cancer and a paternal uncle had lung cancer. Social History: Last screened on 05/28/2019 - Current every day smoker 1.0 pack/day for 20 years (20 pack years). Last screened on 05/28/2019 - Never drank. Patient indicated use of the following products: cigarettes. Current Complaints / Review of Systems: . Vital Signs: Physical Exam: Alert, oriented, no acute distress. Neck is supple. No cervical, supraclavicular, axillary lymphadenopathy. Lungs clear to percussion. On auscultation no rales rhonchi or wheezes. Heart rhythm regular. No murmur or gallop. Abdomen no distention. No organomegaly or mass or tenderness. She has palpable lymphadenopathy in the right inguinal area. Palpable nodes are between 1 and 2 cm in size. She has fullness through the inguinal area. In the left inguinal area she also has soft tissue fullness. She has some small nodes that are palpable but I could not detect any enlarged lymph nodes. Pelvic exam: the external genitalia were normal in appearance. Speculum exam revealed normal-appearing vaginal mucosa. The patient was very tender and I did not get a good look at the cervix. There was a small amount of discharge in the vagina. On bimanual exam, the patient's tenderness also limited the ability to assess. There is firmness in the area of the cervix though no specific mass was palpated. Rectal examination was unrevealing. I could not detect any parametrial disease, but the patient's tenderness limited that assessment. Musculoskeletal: she had no bone tenderness. Normal gait. No lymphedema. Performance Status: KPS 60/100 Pathology: 1) Primary, c82.33 - follicular lymphoma grade iiia, intra-abdominal lymph nodes, Diagnosed 03/01/2018 (active). 2) Squamos Cell Carcinoma Lab: Test performed on 05/28/2019 9:00 AM WBC - 15.6 10 3/ul (high), RBC - 3.54 10 6/ul (low), HCT - 36.4 % (low), MCV - 102.8 fl (high), Neutrophils - 13.1 10 3/ul (high), Monocytes - 1.3 10 3/ul (high), BUN - 30 mg/dl (high), Creatinine - 2.8 mg/dl (high), Cr Clearance (Est) - 24.8800 ml/min (low), eGFR - 18.2 ml/min (low) and Calcium - 11.6 mg/dl (high). Imaging: See HPI. PET scan performed at [facility] on 04/29/2019 revealed bulky mesenteric lymphadenopathy as well as bulky retroperitoneal lymphadenopathy extending down into the pelvis along the common iliac, internal iliac, and external iliac chains. The uterus also had abnormal uptake. Impression: Mrs. Hess has what appears to be carcinoma of the cervix metastatic to an inguinal node. She has very bulky lymphadenopathy in the pelvis, with most of it probably related to the non-Hodgkin's lymphoma. Unfortunately it is not possible to distinguish lymph nodes containing lymphoma from those containing squamous cell carcinoma. Therefore her treatment field will need to include bilateral pelvic nodes and bilateral inguinal nodes. This will result in a treatment volume that makes it more difficult to shield normal tissue such as the bladder and bowel. The plan is to deliver 4500 cGy to the areas of known disease and regional nodes in the pelvis. This dose should be safe for bladder and small bowel. Hopefully she will be a candidate for brachii therapy after completing 5 weeks of external beam radiation. I discussed with Mrs. Hess that because of her kidney function she may not be able to receive concomitant chemotherapy. I told her the standard is to deliver weekly chemotherapy with external beam radiation. Although brachii therapy will be helpful with pelvic lymphadenopathy, it will have minimal or no impact on inguinal lymphadenopathy. Therefore the inguinal areas may need an external beam boost at some point. I reviewed the recommended course of radiation. I reviewed side effects such as fatigue, loss of appetite, weight loss, diarrhea, and dysuria. Also discussed risks, particularly the need for surgery on the bowel or bladder. I told her the treatment could result in a permanent ostomy as well. She has already gone through menopause and so that is not a consideration at this time. Mrs. Hess wishes to proceed as recommended. Plan: Smulation today; EUA tomorrow. Signed by: 06/05/2019 1:56:26 PM <<Signature on File>> Time spent with patient: CPT Code: CPT Code:
== END 2019-06-10 23:59 | disposition home or self-care (01) ==
LOC: ONCMED 08:59
PROVIDERS: Family Provider Family Medicine; PCP Family Medicine; Visit Provider Specialist
DX: C76.0 Malignant neoplasm of head, face and neck (principal); C82.33 Follicular lymphoma grade IIIa, intra-abdominal lymph nodes
CPT/HCPCS: 77334; 99205

== ENCOUNTER 2019-07-10 06:50 | Outpatient (RCR) | payer SELFPAY ==
[2019-06-13 12:15] LABS: Basophils % 0.2 %; Eosinophils # 0.2 10^3/uL (0.0-0.8); Eosinophils % 0.8 %; Hematocrit 37.2 % (37.0-47.0); Hemoglobin 11.8 g/dL (11.5-15.3); Lymphocytes # 0.6 10^3/uL (0.8-4.8); Lymphocytes % 3.3 %; Mean Corpuscular HGB Conc 31.7 g/dL (30.0-36.0); Mean Corpuscular Hemoglobin 33.7 pg (28.0-34.0); Mean Corpuscular Volume 106.3 fL (81-99); Mean Platelet Volume 10.1 fL (7.4-10.4); Monocytes # 1.7 10^3/uL (0.2-0.9); Nucleated Red Blood Cells % 0 %; Platelet Count 388 10^3/cmm (130-400); Red Cell Distribution Width 14.6 % (12.1-15.1); White Blood Count 18.9 10^3/uL (4.0-10.0)
[2019-06-13 12:35] LABS: Alanine Aminotransferase 8 U/L (0-33); Alkaline Phosphatase 105 IU/L (35-105); Anion Gap 19.8 (5-19); Aspartate Amino Transferase 17 U/L (0-32); Blood Urea Nitrogen 31 mg/dL (6-20); Calcium 12.1 mg/dL (8.5-10.5); Carbon Dioxide 23 mmol/L (22-29); Chloride 97 mmol/L (98-107); Globulin 3.1 g/dL (1.3-4.6); Glomerular Filtration Rate 17.5 mL/min (90-130); Glucose 90 mg/dL (65-115); Osmolality Calculated 279 mOsm/kg (285-295); Potassium 3.8 mmol/L (3.5-5.1); Sodium 136 mmol/L (136-145); Total Bilirubin 0.3 mg/dL (0.15-1.2); Total Protein 7.1 g/dL (6.6-8.7)
[2019-06-23 11:16] LABS: Bilirubin Urine Neg (NEGATIVE); Blood Urine 2+ (Negative); Glucose Urine UA Norm (Normal); Ketones Urine Negative (Negative); Leukocyte Esterase Urine 2+ (Negative); Nitrate Urine Positive (Negative); Protein Urine Trace (Negative); Urine Appearance Cloudy (CLEAR); Urine Color Straw (Yellow); Urobilinogen Urine Norm (Negative); pH Urine 7 (5-7)
[2019-06-23 11:18] LABS: WBC Urine TOO NUMEROUS TO CNT /hpf (0-5)
[2019-06-23 11:19] LABS: Add Urine Culture? Yes; Bacteria Urine 3+; Squamous Epithelial Cell Urine 0-4 (0-5)
--- NOTE | 2019-06-24 10:55 | ONCRAD TMN_ITS ---
Radiation Oncology Weekly Treatment Management Patient: Shruthi Hess MR#: [id number] : 1975> Age: 44> Sex: Female Dictated by: Dr. Harris Powers Date of Service: 06/24/2019 Referring Physician(s) : Dr. Génesis Campbell Primary Diagnosis: C82.33 - Follicular lymphoma grade iiia, intra-abdominal lymph nodes, Diagnosed 03/01/2018 (Active) Radiotherapy to date: Course: Pelvis 2019, Treatment Site: [id number], Ref. ID: [id number], Energy: 15X/6X, Dose/Fx (cGy): 180, #Fx: , Dose Correction (cGy): 0, Total Dose (cGy): 900, Start Date: 06/18/2019, Elapsed Days: 6 Current Complaints/Interval History: Constitutional Complains of mild fatigue. Complains of low grade fever which occurs intermittently. Complains of night sweats which occur every night. Denies lack of appetite and change in weight. Integumentary No redness to the vaginal area Gastrointestinal Complains of abdominal pain located in left lower quadrant. Complains of nausea. Denies constipation, diarrhea, heartburn / dyspepsia, melena / GI bleeding and vomiting. Genitourinary (F) Complains of dysuria. Complains of nocturia gets up about 1 to 2 times per night. Complains of urgency occasionally. Complains of recent urine color change described as cloudy. Complains of vaginal spotting. Denies frequency. Current Medications: Acetaminophen, ciprofloxacin HCl, dexamethasone, diphenhydrAMINE HCl, hydrocodone-Acetaminophen, hYDROcodone-Acetaminophen, renaPlex-D, riTUXimab. Allergies: No Known Allergies Vital Signs: Performed on 06/24/2019 10:17 AM BMI - 20.838 kg/m2, Height - 64.00 in, Weight - 121.4 lbs, Temperature - 99.1 f, Pulse - 90, Respiration - 16, O2 Sat - 96 %, Pain - 3 and BP - 99/ 67 mm(hg). Physical Exam: Appears stable, no skin erythema or desquamation. Performance Status: 1 - No physically strenuous activity, but ambulatory and able to carry out light or sedentary work (e.g. office work, light house work). (ECOG) Lab: None pending in Radiation Oncology. Test performed on 05/28/2019 9:00 AM WBC - 15.6 10 3/ul (high), RBC - 3.54 10 6/ul (low), HCT - 36.4 % (low), MCV - 102.8 fl (high), Neutrophils - 13.1 10 3/ul (high), Monocytes - 1.3 10 3/ul (high), BUN - 30 mg/dl (high), Creatinine - 2.8 mg/dl (high), Cr Clearance (Est) - 24.8800 ml/min (low), eGFR - 18.2 ml/min (low) and Calcium - 11.6 mg/dl (high). Imaging: No new diagnostic imaging was performed since the last weekly treatment visit. All radiation therapy related imaging (including but not limited to kV, MV, and CBCT generated images) was reviewed. Appropriate changes, if any, were made to assure accurate target localization. Impression/Plan: Tolerating treatment well with expected side effects. Continue treatment as planned. UA with increased wbc???s-Rx???ed Cipro 500 mg twice daily for 7 days CPT: 95604 Signed by: Dr. Harris Powers>06/24/2019 10:54:20 AM <<Signature on File>>
--- NOTE | 2019-07-02 15:35 | ONCRAD TMN_ITS ---
Radiation Oncology Weekly Treatment Management Patient: Shruthi Hess MR#: [id number] : 1975> Age: 44> Sex: Female Dictated by: Beni Fajardo Date of Service: 07/02/2019 Referring Physician(s) : Dr. Génesis Campbell Primary Diagnosis: C82.33 - Follicular lymphoma grade iiia, intra-abdominal lymph nodes, Diagnosed 03/01/2018 (Active) Radiotherapy to date: Course: Pelvis 2019, Treatment Site: [id number], Ref. ID: [id number], Energy: 15X/6X, Dose/Fx (cGy): 180, #Fx: , Dose Correction (cGy): 0, Total Dose (cGy): 1,980, Start Date: 06/18/2019, Elapsed Days: 14 Current Complaints/Interval History: Chronic low grade temp persists which predates treatment. Mild ongoing fatigue. Vaginal DC improved with less discharge and now clear. Odor also improved. Rests a lot. Lives with who is on immunotherapy for lung cancer dx approx. 2 years ago. Bowels variable with no real diarrhea. Constitutional Complains of mild fatigue. Complains of low grade fever which occurs throughout the day. Complains of night sweats which occur every night. Complains of rigors / chills occurring occasionally. Denies lack of appetite. Integumentary Has no redness to the vaginal area. Gastrointestinal Complains of abdominal pain located in the lower abdomen. Complains of intermittent constipation. Complains of nausea which happens occasionally. Denies diarrhea, heartburn / dyspepsia and vomiting. Genitourinary (F) Complains of nocturia gets up about 2 to 3 times per night. Complains of occasional vaginal discharge / bleeding described as clear, watery. Denies dysuria, frequency, hematuria, urgency and vaginal spotting. Musculoskeletal Complains of bone pain in both hips. Current Medications: Acetaminophen, dexamethasone, diphenhydrAMINE HCl, hydrocodone-Acetaminophen, hYDROcodone-Acetaminophen, morphine Sulfate ER, renaPlex-D, riTUXimab. Allergies: No Known Allergies Vital Signs: Performed on 07/02/2019 10:56 AM BMI - 20.323 kg/m2, Height - 64.00 in, Weight - 118.4 lbs, Temperature - 99.0 f, Pulse - 64, Respiration - 18, O2 Sat - 99 %, Pain - 4 and BP - 101/ 64 mm(hg)(/low). Physical Exam: Appears stable, no skin erythema or desquamation. Performance Status: 1 - No physically strenuous activity, but ambulatory and able to carry out light or sedentary work (e.g. office work, light house work). (ECOG) Lab: None pending in Radiation Oncology. Test performed on 05/28/2019 9:00 AM WBC - 15.6 10 3/ul (high), RBC - 3.54 10 6/ul (low), HCT - 36.4 % (low), MCV - 102.8 fl (high), Neutrophils - 13.1 10 3/ul (high), Monocytes - 1.3 10 3/ul (high), BUN - 30 mg/dl (high), Creatinine - 2.8 mg/dl (high), Cr Clearance (Est) - 24.8800 ml/min (low), eGFR - 18.2 ml/min (low) and Calcium - 11.6 mg/dl (high). Imaging: No new diagnostic imaging was performed since the last weekly treatment visit. All radiation therapy related imaging (including but not limited to kV, MV, and CBCT generated images) was reviewed. Appropriate changes, if any, were made to assure accurate target localization. Impression/Plan: Tolerating treatment well with expected side effects. Continue treatment as planned. CPT: 27359 Signed by: Dr. Beni Fajardo>07/02/2019 3:33:56 PM <<Signature on File>>
--- NOTE | 2019-07-09 12:40 | ONCRAD TMN_ITS ---
Radiation Oncology Weekly Treatment Management Patient: Shruthi Hess MR#: [id number] : 1975> Age: 44> Sex: Female Dictated by: Dr. Beni Fajardo Date of Service: 07/09/2019 Referring Physician(s) : Dr. Génesis Campbell Primary Diagnosis: C82.33 - Follicular lymphoma grade iiia, intra-abdominal lymph nodes, Diagnosed 03/01/2018 (Active) Radiotherapy to date: Course: Pelvis 2019, Treatment Site: [id number], Ref. ID: [id number], Energy: 15X/6X, Dose/Fx (cGy): 180, #Fx: , Dose Correction (cGy): 0, Total Dose (cGy): 2,880, Start Date: 06/18/2019, Elapsed Days: Current Complaints/Interval History: Continues to have an ongoing low grade fever which transiently increased to 101.4 yesterday. Eating ok with no diarrhea. Bowels constipated and treated with Miralax. Urination is ok. No vaginal DC. Rests a lot at home and working in garden. Lives with 19 yo and 8 yo children. Constitutional Complains of mild fatigue. Complains of low grade fever but had one last night that was 101.4. She took Tylenol 500 mg and in half and hour it was gone.. Complains of night sweats which occur occasionally. Denies lack of appetite. Integumentary Has no redness or irritation to the vaginal area Gastrointestinal Complains of abdominal pain, constipation and nausea which happens occasionally. Denies diarrhea, heartburn / dyspepsia and vomiting. Genitourinary (F) Denies dysuria, frequency, urgency, vaginal discharge / bleeding and vaginal spotting. Musculoskeletal Has lower groin pain that come and goes Current Medications: Acetaminophen, dexamethasone, diphenhydrAMINE HCl, hydrocodone-Acetaminophen, hYDROcodone-Acetaminophen, morphine Sulfate ER, renaPlex-D, riTUXimab. Allergies: No Known Allergies Vital Signs: Performed on 07/09/2019 10:49 AM BMI - 20.323 kg/m2, Height - 64.00 in, Weight - 118.4 lbs, Temperature - 98.4 f, Pulse - 89, Respiration - 18, O2 Sat - 98 %, Pain - 2 and BP - 95/ 65 mm(hg). Physical Exam: Appears stable, no skin erythema or desquamation. Performance Status: 3 - Capable of only limited self-care, confined to bed or chair more than 50% of waking hours. (ECOG) Lab: None pending in Radiation Oncology. Test performed on 05/28/2019 9:00 AM WBC - 15.6 10 3/ul (high), RBC - 3.54 10 6/ul (low), HCT - 36.4 % (low), MCV - 102.8 fl (high), Neutrophils - 13.1 10 3/ul (high), Monocytes - 1.3 10 3/ul (high), BUN - 30 mg/dl (high), Creatinine - 2.8 mg/dl (high), Cr Clearance (Est) - 24.8800 ml/min (low), eGFR - 18.2 ml/min (low) and Calcium - 11.6 mg/dl (high). Imaging: No new diagnostic imaging was performed since the last weekly treatment visit. All radiation therapy related imaging (including but not limited to kV, MV, and CBCT generated images) was reviewed. Appropriate changes, if any, were made to assure accurate target localization. Impression/Plan: Tolerating treatment well with expected side effects. Continue treatment as planned. CPT: 82896 Signed by: Dr. Beni Fajardo>07/09/2019 12:39:24 PM <<Signature on File>>
== END 2019-07-10 23:59 | disposition home or self-care (01) ==
LOC: ONCMED 06:50
PROVIDERS: Radiology Radiation Oncology; Specialist; Family Provider Family Medicine; PCP Family Medicine; Visit Provider Radiology Radiation Oncology
DX: Z51.0 Encounter for antineoplastic radiation therapy (principal); C82.33 Follicular lymphoma grade IIIa, intra-abdominal lymph nodes; R30.0 Dysuria; R35.0 Frequency of micturition; R39.15 Urgency of urination; R50.9 Fever, unspecified; Z79.891 Long term (current) use of opiate analgesic
CPT/HCPCS: 77300; 77301; 77336; 77338; 77386; 80053; 81001; 85025; 87086

== ENCOUNTER 2019-07-24 06:49 | Outpatient (RCR) | payer BC, SELFPAY ==
[2019-07-14 12:01] LABS: Glucose Urine UA Norm (Normal); Ketones Urine Negative (Negative); Protein Urine Neg (Negative); Specific Gravity, Urine 1.005 (1.005-1.030); Urine Appearance Cloudy (CLEAR); Urine Color Yellow (Yellow); pH Urine 7 (5-7)
[2019-07-14 12:02] LABS: Add Urine Microscopic? YES; Bilirubin Urine Neg (NEGATIVE); Blood Urine 2+ (Negative); Nitrate Urine Negative (Negative); Urobilinogen Urine Norm (Negative)
[2019-07-14 12:22] LABS: Leukocyte Esterase Urine 2+ (Negative)
[2019-07-14 12:23] LABS: RBC Urine 0-4 /hpf (0-2); WBC Urine 40-55 /hpf (0-5)
[2019-07-14 12:24] LABS: Bacteria Urine 3+; Squamous Epithelial Cell Urine 0-4 (0-5)
[2019-07-14 12:25] LABS: Add Urine Culture? Yes
[2019-07-15 11:41] LABS: Albumin Level 4.1 g/dL (3.5-5.2); Anion Gap 19.2 (5-19); Blood Urea Nitrogen 42 mg/dL (6-20); Calcium 12.2 mg/dL (8.5-10.5); Carbon Dioxide 24 mmol/L (22-29); Chloride 94 mmol/L (98-107); Glomerular Filtration Rate 16.8 mL/min (90-130); Glucose 95 mg/dL (65-115); Phosphorus 3.5 mg/dL (2.5-4.5); Potassium 3.2 mmol/L (3.5-5.1); Sodium 134 mmol/L (136-145)
[2019-07-15 12:14] LABS: Calcium 11.8 mg/dL (8.5-10.5); Parathyroid Hormone 24.4 pg/mL (15-65)
--- NOTE | 2019-07-16 14:12 | ONCRAD TMN_ITS ---
Radiation Oncology Weekly Treatment Management Patient: Shruthi Hess MR#: [id number] : 1975> Age: 44> Sex: Female Dictated by: Dr. Beni Fajardo Date of Service: 07/16/2019 Referring Physician(s) : Dr. Mehdi Hicks Primary Diagnosis: C82.33 - Follicular lymphoma grade iiia, intra-abdominal lymph nodes, Diagnosed 03/01/2018 (Active) Radiotherapy to date: Course: Pelvis 2019, Treatment Site: [id number], Ref. ID: [id number], Energy: 15X/6X, Dose/Fx (cGy): 180, #Fx: 20 / 25, Dose Correction (cGy): 0, Total Dose (cGy): 3,600, Start Date: 06/18/2019, Elapsed Days: 28 Current Complaints/Interval History: Seen earlier in the week for UTI. UA positive for WBC ,bacteria. Culture now positive for group b strep. Cipro 500mg a day x 7 begun. Now with less fever back to baseline low temp. Temp at home was 101.3, Urine clear with resolution of odor. Eating some. No vaginal sxs. Seen by french comber and found to have low K level K supplement given. LAB 07/16/2019. K 3.2 Cr 3.0 Ca 12.2 Constitutional Complains of lack of appetite related to food not tasting good. Complains of mild fatigue. Complains of low grade fever but ran a 101.3 yesterday afternoon. Complains of night sweats. Complains of rigors / chills. Complains of change in weight down 2.8 lbs. since last week. Integumentary Has a small raw area on the outer left vaginal area. Gastrointestinal Complains of abdominal pain located in the lower abdomen. Denies constipation, diarrhea, heartburn / dyspepsia, nausea and vomiting. Genitourinary (F) Complains of frequency. Complains of urgency. Complains of urine color change. Complains of vaginal discharge / bleeding described as clear, watery. Denies dysuria, hematuria and vaginal spotting. Current Medications: Acetaminophen, acetaminophen, dexamethasone, diphenhydrAMINE HCl, hydrocodone-Acetaminophen, morphine Sulfate ER, renaPlex-D, riTUXimab. Allergies: No Known Allergies Vital Signs: Performed on 07/16/2019 10:43 AM BMI - 19.843 kg/m2, Height - 64.00 in, Weight - 115.6 lbs, Temperature - 98.4 f, Pulse - 82, Respiration - 18, O2 Sat - 99 %, Pain - 0 and BP - 95/ 65 mm(hg). Physical ExamSmall raw spot seen by nurse in outer left vaginal area.. Performance Status: 2 - Ambulatory/capable of all self-care, unable to perform any work activities. Up and about more than 50% of waking hours. (ECOG) Lab: None pending in Radiation Oncology. Test performed on 05/28/2019 9:00 AM WBC - 15.6 10 3/ul (high), RBC - 3.54 10 6/ul (low), HCT - 36.4 % (low), MCV - 102.8 fl (high), Neutrophils - 13.1 10 3/ul (high), Monocytes - 1.3 10 3/ul (high), BUN - 30 mg/dl (high), Creatinine - 2.8 mg/dl (high), Cr Clearance (Est) - 24.8800 ml/min (low), eGFR - 18.2 ml/min (low) and Calcium - 11.6 mg/dl (high). Imaging: No new diagnostic imaging was performed since the last weekly treatment visit. All radiation therapy related imaging (including but not limited to kV, MV, and CBCT generated images) was reviewed. Appropriate changes, if any, were made to assure accurate target localization. Impression/Plan: Tolerating treatment well with expected side effects. Continue treatment as planned. Will need ongoing electrolyte follow-up with her french comber. CPT: 11783 Signed by: Dr. Beni Fajardo>07/16/2019 2:11:08 PM <<Signature on File>>
--- NOTE | 2019-07-22 13:45 | ONCRAD TMN_ITS ---
Radiation Oncology Weekly Treatment Management Patient: Shruthi Hess MR#: [id number] : 1975> Age: 44> Sex: Female Dictated by: Dr. Beni Fajardo Date of Service: 07/22/2019 Referring Physician(s) : Dr. Mehdi Hicks Primary Diagnosis: C82.33 - Follicular lymphoma grade iiia, intra-abdominal lymph nodes, Diagnosed 03/01/2018 (Active) Radiotherapy to date: Course: Pelvis 2019, Treatment Site: [id number], Ref. ID: [id number], Energy: 15X/6X, Dose/Fx (cGy): 180, #Fx: , Dose Correction (cGy): 0, Total Dose (cGy): 4,320, Start Date: 06/18/2019, Elapsed Days: 34 Current Complaints/Interval History: She had a recurrent fever last night to 102.3. She took Tylenol twice with improvement she is now feeling better. Her nephrology follow-up did not occur because of fever she will have a phone call follow-up with her pipe puller. She has a bit of urinary pain at the end of her stream. No stinging no odor no cloudiness. Bowel function is stable. She is eating well and well-hydrated. She has a small purple spot in her vaginal region she did not desire inspection of that at this time. Constitutional Complains of fatigue. Complains of frequently spiking fever in the evenings and at night. Last night is went up to 102.3. Complains of night sweats. Complains of rigors / chills. Denies lack of appetite and change in weight. Integumentary Has blister like spot in the vaginal area Gastrointestinal Complains of abdominal pain located in the lower abdomen. Denies constipation, diarrhea, heartburn / dyspepsia, melena / GI bleeding, nausea and vomiting. Genitourinary (F) Complains of nocturia gets up about 2 to 3 times per night. Complains of occasional vaginal discharge / bleeding described as clear, watery. Denies dysuria, frequency, urine color change and vaginal spotting. Feels the need to push after finishing urination Musculoskeletal Has groin pain Current Medications: Acetaminophen, acetaminophen, dexamethasone, diphenhydrAMINE HCl, hydrocodone-Acetaminophen, morphine Sulfate ER, renaPlex-D, riTUXimab. Allergies: No Known Allergies Vital Signs: Performed on 07/22/2019 10:58 AM BMI - 19.74 kg/m2, Height - 64.00 in, Weight - 115.0 lbs, Temperature - 99.4 f, Pulse - 96, Respiration - 18, O2 Sat - 96 %, Pain - 0 and BP - 95/ 62 mm(hg)(/low). Physical Exam: Appears stable, no skin erythema or desquamation. Performance Status: 1 - No physically strenuous activity, but ambulatory and able to carry out light or sedentary work (e.g. office work, light house work). (ECOG) Lab: None pending in Radiation Oncology. Test performed on 05/28/2019 9:00 AM WBC - 15.6 10 3/ul (high), RBC - 3.54 10 6/ul (low), HCT - 36.4 % (low), MCV - 102.8 fl (high), Neutrophils - 13.1 10 3/ul (high), Monocytes - 1.3 10 3/ul (high), BUN - 30 mg/dl (high), Creatinine - 2.8 mg/dl (high), Cr Clearance (Est) - 24.8800 ml/min (low), eGFR - 18.2 ml/min (low) and Calcium - 11.6 mg/dl (high). Imaging: No new diagnostic imaging was performed since the last weekly treatment visit. All radiation therapy related imaging (including but not limited to kV, MV, and CBCT generated images) was reviewed. Appropriate changes, if any, were made to assure accurate target localization. Impression/Plan: Tolerating treatment well with expected side effects. Continue treatment as planned. She will complete her pelvic radiation therapy on July 22. Following this she will be seen in [place] for completion brachy therapy CPT: 57906 Signed by: Dr. Beni Fajadro>07/22/2019 12:58:01 PM <<Signature on File>>
== END 2019-08-10 23:59 | disposition home or self-care (01) ==
LOC: ONCMED 06:49
PROVIDERS: Internal Medicine Nephrology; Family Provider Family Medicine; PCP Family Medicine; Visit Provider Radiology Radiation Oncology
DX: Z51.0 Encounter for antineoplastic radiation therapy (principal); C82.33 Follicular lymphoma grade IIIa, intra-abdominal lymph nodes; D64.9 Anemia, unspecified; N18.6 End stage renal disease; G62.9 Polyneuropathy, unspecified
CPT/HCPCS: 36415; 77336; 77386; 80069; 81001; 82310; 83970; 87086

== ENCOUNTER 2019-09-16 12:39 | Outpatient (CLI) | payer SELFPAY ==
[2019-09-16 13:26] LABS: Basophils # 0.1 10^3/uL (0.0-0.1); Basophils % 0.3 %; Eosinophils # 0.2 10^3/uL (0.0-0.8); Hematocrit 26.8 % (37.0-47.0); Hemoglobin 7.9 g/dL (11.5-15.3); Lymphocytes # 0.5 10^3/uL (0.8-4.8); Lymphocytes % 2.9 %; Mean Corpuscular HGB Conc 29.5 g/dL (30.0-36.0); Mean Corpuscular Hemoglobin 31.1 pg (28.0-34.0); Mean Corpuscular Volume 105.5 fL (81-99); Mean Platelet Volume 10.8 fL (7.4-10.4); Monocytes # 0.9 10^3/uL (0.2-0.9); Monocytes % 5.2 %; Neutrophils % 84.5 %; Nucleated Red Blood Cells % 0 %; Platelet Count 152 10^3/cmm (130-400); Red Blood Count 2.54 10^6/uL (4.1-5.3); Red Cell Distribution Width 18.7 % (12.1-15.1); White Blood Count 17.8 10^3/uL (4.0-10.0)
[2019-09-16 13:41] LABS: Alanine Aminotransferase < 5 U/L (0-33); Albumin Level 4.3 g/dL (3.5-5.2); Alkaline Phosphatase 72 IU/L (35-105); Anion Gap 17.6 (5-19); Aspartate Amino Transferase 12 U/L (0-32); Blood Urea Nitrogen 28 mg/dL (6-20); Calcium 9.1 mg/dL (8.5-10.5); Carbon Dioxide 20 mmol/L (22-29); Chloride 103 mmol/L (98-107); Globulin 2.4 g/dL (1.3-4.6); Glomerular Filtration Rate 30.3 mL/min (90-130); Glucose 88 mg/dL (65-115); Osmolality Calculated 280 mOsm/kg (285-295); Potassium 3.6 mmol/L (3.5-5.1); Sodium 137 mmol/L (136-145); Total Bilirubin 0.3 mg/dL (0.15-1.2); Total Protein 6.7 g/dL (6.6-8.7)
--- NOTE | 2019-09-16 18:04 | ONC FU_ITS ---
Dr. Owusu follow up note Patient: Shruthi Hess Unit #: [id number]: 1975 Dicatated By: Nicole Owusu M.D.Date of Visit:Sep 16, 2019 Onc Med Follow-up/Prog Note History of Present Illness: Mrs. Shruthi Hess, is a 44-year-old female who initially, in 2011, was diagnosed with non-Hodgkin lymphoma diffuse large B cell with extensive disease above and below diaphragm at that time bone marrow evaluation was negative and PET scan showed the dominant mesenteric mass with retroperitoneal lymphadenopathy and disease was also present above the diaphragm. She was treated with 6 cycles of chemotherapy with R CHOP and lost treatment was given in July 2011 and follow-up CT PET scan showed complete remission. Subsequently patient lost follow-up until in August 2017 she was admitted to hospital with generalized weakness and fatigue, abdominal discomfort and pain and renal insufficiency, CT scan of abdomen showed progressive retroperitoneal adenopathy causing post renal obstruction and bilateral ureteral stents were placed in and biopsy of retroperitoneal lymph nodes was obtained and this time it showed follicular lymphoma, grade 3A (60%), and grade 1-2 (40%), no diffuse large B cell lymphoma identified patient was started on R CHOP again but Doxil was used instead of doxorubicin with second cycle every and vincristine dose was reduced by 50% in the last 3 cycles due to peripheral neuropathy. CT PET scan done after 5 cycles of chemotherapy showed confluent lower retroperitoneal/pelvic adenopathy, right more prominent than left, similar to that observed on the previous CT scan exam. Consistent with lymphoma involvement but with low level of metabolic standards meeting Deauville 2 criteria consistent with tumor response history. Her hematuria resolved, but intended to have pelvic pain for which she take 5/325 hydrocodone/acetaminophen. And other issue she had persistent hypercalcemia and impression was probably due to renal insufficiency for which she is on daily peritoneal dialysis at home. And patient is noncompliant with that . After 6 cycles of modified R CHOP ( Doxil instead of Adriamycin and 50% dose reduction and vincristine with the last 3 cycles )chemotherapy she was offered maintenance therapy with Rituxan every 3 months ???24 months. But patient decided to switch her care close to her home Had follow-up CT PET scan done on 06/19/2018 at [facility], as per report it shows no evidence of disease. She was evaluated by Dr. Almanza and she recommended maintenance therapy with Rituxan every 3 months for 2 years.Started maintenance therapy with Rituxan every 3 months on 05/28/2018 CT scan of abdomen pelvis done on 04/10/2019 showed suspicious for recurrence and progression of patient's lymphoma. Anterior size and number of lymph nodes in the retroperitoneum, iliac and pelvic lymph nodes group. Fluid-filled endometrium. Follow-up CT PET scan done on 05/02/2019 showed extensive lower retroperitoneal and pelvic lymphadenopathy with marked metabolic activity. Uterus demonstrated marked increase of metabolic activity concerning for neoplastic A cystic masses present cephalad to the urinary bladder and center to the uterus of unknown etiology without focally increase metabolic activity. Consider possible peritoneal inclusion cyst Patient went to see Dr. Mosqueda at [facility], where on 05/22/[address]-guided core biopsy of right pelvic lymph node and final pathology report confirmed metastatic squamous cell carcinoma, moderately to poorly differentiated. Too few cells for flow cytometry, Patient was referred to Dr. zelaya, who saw her on June 04, 2019 and on June 06, 2019 she underwent cystoscopy with bladder biopsy and cervical biopsies and endocervical curettage which confirmed cervical cancer and external beam radiation therapy was recommended which patient completed recently and then she went back to see Dr. zelaya for brachii therapy, as per patient brachii therapy was postponed because of low blood and she required blood transfusion in the meantime she continued to lose weight and her performance status continues to deteriorate. As per patient and her , during the last visit, hospice was discussed but patient was undecided. Came for follow-up, complaining of generalized weakness and fatigue, she is on morphine and hydrocodone with decent pelvic pain control. Denies any nausea vomiting denies any fever chills denies any diarrhea or constipation. But poor appetite. No jaundice, no hemoptysis or hematemesis, no vaginal bleeding or hematuria Medications: Acetaminophen 1 Tablet (of 500 mg) Tablet Oral PRN, HYDROcodone-Acetaminophen 1 Tablet (of 7.5-325 mg) Oral q 4 hours, Midodrine HCl 1 Tablet (of 5 mg) Oral t.i.d., Morphine Sulfate ER 1 Tablet (of 30 mg) Tablet, controlled release Oral q 12 hours, Potassium Citrate ER 1 Tablet (of 10 meq ) Tablet, controlled release Oral daily, RenaPlex-D 1 Tablet Oral daily Allergies: No Known Allergies. Review of Systems: Review of Systems is not available for this patient. Vital Signs: Performed on Sep 16, 2019 14:31 Height - 64.00 in Weight - 106.8 lbs (LOW) BSA - 1.50 sq.m BMI - 18.33 Temperature - 99.5 F (HIGH) Pulse - 119 /min (HIGH) Respiration - 20 /min BP - 98/57 mm(hg) O2 Sat - 99 % Pain - 3 Performance Status: 2 - Ambulatory/capable of all self-care, unable to perform any work activities. Up and about more than 50% of waking hours. (ECOG) Physical Examination: ENMT - No mouth sores, no thrush, no jaundice, Respiratory - Lungs are clear, Cardiovascular - Regular rate and rhythm of heart, Abdomen - Soft, bowel sounds present, Extremities - Trace edema bilaterally. Lab/Imaging: Test performed on May 28, 2019 09:00 Sodium 138 mmol/L Potassium 3.5 mmol/L Chloride 102 mmol/L CO2 26 mmol/L Anion Gap 13.5 BUN 30 mg/dL Creatinine 2.8 mg/dL Cr Clearance (Est) 24.8800 mL/min eGFR 18.2 mL/min Glucose 105 mg/dL Calcium 11.6 mg/dL Protein, Total 7.3 g/dL Albumin 3.9 g/dL Globulin 3.4 g/dL Bilirubin, Total 0.2 mg/dL ALT (SGPT) 6 U/L AST (SGOT) 16 U/L Alkaline Phosphatase 90 IU/L WBC 15.6 10 3/uL RBC 3.54 10 6/uL HGB 12.0 g/dL HCT 36.4 % MCV 102.8 fL MCH 33.9 pg MCHC 33.0 g/dL RDW 13.3 % Platelet Count 329 10 3/cmm MPV 9.7 fL Neutrophils 13.1 10 3/uL Lymphocytes 0.9 10 3/uL Monocytes 1.3 10 3/uL Eosinophils 0.1 10 3/uL Basophils 0.0 10 3/uL Neutrophil % 84.2 % Lymphocyte % 5.8 % Monocyte % 8.1 % Eosinophil % 0.9 % Basophils % 0.2 % Impression: Follicular lymphoma involving both side of diaphragm clinical stage III per left retroperitoneal lymph node core biopsy done on 08/27/2017. Which showed follicular lymphoma, grade 3A (60%,) grade1-2 (40% )and now diffuse large B-cell lymphoma identified CT scan of chest abdomen pelvis done on 08/23/2017 showed extensive confluent retroperitoneal lymphadenopathy. Moderate bilateral hydronephrosis with ureteral stents and no evidence of hepatosplenomegaly. CT scan of chest done on 08/25/2017 showed no evidence of thoracic lymphadenopathy Status post 6 cycles of chemotherapy with modified R CHOP (Doxil instead of doxorubicin after first cycle and 50% vincristine dose reduction with last 3 cycles) 10/04/17 to 01/22/18 follow-up CT PET scan done on 01/10/2018 showed confluent lower retroperitoneal/pelvic lymphadenopathy, right more than left, similar to that observed on previous CT scan but now with low level of metabolic standards meeting Deauville 2 criteria consistent with tumor responseRenal failure on daily peritoneal dialysis at home, ? Noncompliant Hypercalcemia ? Etiology, renal versus metabolic/endocrine e.g. PTH related. Or malignant. Next Right Pelvic pain/right knee pain scan due to retroperitoneal lymphadenopathy or lumbosacral Anemia probably multifactorial Peripheral neuropathy Ectopic dermatitis on feet being treated with clobetasol cream Patient was referred to lymphoma leukemia clinic at [facility] in [place] for clinical trials or second opinion patient was seen by Dr. Almanza , and her recommendations were, due to patient's underlying renal failure and being on peritoneal dialysis she was not a candidate for clinical trials. But maintenance therapy with Rituxan every 3 months for 2 years was recommended and she is planning to repeat her CT PET scan in 2 months because of persistent lymphadenopathy on posttreatment CT scan. Also considering referred to solar manufacturer's representative at [facility] for evaluation regarding etiology, management and chances of recovery or if she is a candidate for renal transplant. discussed with Mrs Hess her visit to lymphoma clinic at [facility] and the recommendations. At this point, her treatment plan will be maintenance therapy with Rituxan 375 mg/m??? every 3 months ???2 years, as recommended by Dr. Almanza .Started on maintenance therapy with Rituxan every 3 months on 05/28/2018 Plan: Discussed with patient regarding her labs white blood count 17.8 hemoglobin 7.9 hematocrit 26.8 platelets 152,000 CMP within normal limit except creatinine 1.8 Clinically, patient is doing reasonably well, comfortable with morphine and hydrocodone as far as pelvic pain is concerned, patient has completed radiation therapy to the pelvis, now brachii therapy is under consideration but it was postponed last time due to severe anemia requiring blood transfusion. Patient says she did develop episode of seizure during her last visit to [facility] in [place]. No more seizures since then. Patient is considering brachytherapy and has follow-up appointment on Sunday. Patient was advised that as far as generalized weakness is concerned, could be multifactorial including pain medication, she may benefit from blood transfusion, patient will decide and let us know if agreed, will consider packed RBC blood transfusion prior to her follow-up for brachy therapy on Sunday and then she will return to clinic 2 weeks after brachytherapy for follow-up and for further discussion Patient was also advised to follow-up with her nephrology as far as renal insufficiency is concerned Signed By: Nicole Owusu M.D. <<Signature on File>>
== END 2019-09-16 12:40 | disposition home or self-care (01) ==
LOC: ONCMED 12:52
PROVIDERS: PCP Family Medicine; Visit Provider Internal Medicine Hematology & Oncology
DX: C82.33 Follicular lymphoma grade IIIa, intra-abdominal lymph nodes (principal); G62.9 Polyneuropathy, unspecified; N17.9 Acute kidney failure, unspecified
CPT/HCPCS: 36591; 80053; 85025; 99214